=== PATIENT | male | born 2000 | race African-American/Black ===

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

== ENCOUNTER 2019-01-12 18:30 | Emergency (ER) | payer OTHER ==
[~2019-01-12] VITALS: Ht 175.3 cm; Wt 81.6 kg
[~2019-01-12 18:30] MED LIST changes: +AMOXICILLIN500 MG ORAL; +TYLENOL EXTRA500 MG ORAL
[2019-01-12 18:49] VITALS: BP 126/82
--- NOTE | 2019-01-12 18:54 | NUR ---
ED Nurse Note: Pt. AAOx4. ambulatory. came in to ER due to dry rashes noted all over his upper body. per pt, he started noticing traces of ring worm on his chest 3 months ago and now it's around the abd area and back. no itchiness reported
--- NOTE | 2019-01-12 19:19 | Emergency Room Report ---
History of Present Illness General Chief Complaint: Skin Rash/Abscess Source: Patient Present Illness HPI 18-year-old male presents to the emergency department complaining of multiple plaques on his torso 2 months. Patient reports some initial itching, and denies any pain. Pt. denies fevers, chills or swollen tender lymph nodes. Denies lesions/rashes elsewhere on the body. Denies new medications or body washes or creams. Denies swelling of the lips, tongue , throat or airway. Denies wheezing, or shortness of breath. Denies recent travel, recent illness or ill contacts. denies blisters, oral lesions, or sloughing of the skin. He reports at initial onset he did have several days of diarrhea. Allergies: Coded Allergies: FISH CONTAINING PRODUCTS (Verified Allergy, Unknown, 04/17/17) Patient History Past Medical History: see triage record Past Surgical History: none Pertinent Family History: none Reviewed Nursing Documentation: PMH: Agreed; PSxH: Agreed Nursing Documentation-PMH Hx Asthma: Yes Review of Systems All Other Systems: negative except mentioned in HPI Physical Exam Vital Signs Date Time Temp Pulse Resp B/P (MAP) Pulse Ox O2 Delivery O2 Flow Rate FiO2 01/12/19 18:49 98.1 70 19 97 Room Air 01/12/19 18:49 126/82 Sp02 EP Interpretation: reviewed, normal General Appearance: no apparent distress, alert, GCS 15, non-toxic Head: normocephalic, atraumatic Eyes: bilateral eye normal inspection, bilateral eye PERRL ENT: hearing grossly normal, normal pharynx, no angioedema, normal voice, other - no stridor, no swelling of the lips or tongue. Neck: full range of motion Respiratory: chest non-tender, lungs clear, normal breath sounds, speaking full sentences Cardiovascular #1: regular rate, rhythm, no edema Gastrointestinal: non tender, soft Musculoskeletal: back normal, gait/station normal, normal range of motion, non- tender Neurologic: alert, oriented x3, responsive, motor strength/tone normal, sensory intact, speech normal, grossly normal Psychiatric: judgement/insight normal Skin: normal color, warm/dry, well hydrated, rash - mildly erythematous plaques with silver sheen scattered diffusely on the torso. No blisters or vessicles, no areas of confluence, scant amount, all plaques less than1.5 cm in diameter. no central clearing, non-blanching. Medical Decision Making PA Attestation Dr. Duron is my supervising Physician whom patient management has been discussed with. Diagnostic Impression: Primary Impression: Rash and other nonspecific skin eruption ER Course 18-year-old male presents to the emergency department complaining of multiple plaques on his torso 2 months. Patient reports some initial itching, and denies any pain. Pt. denies fevers, chills or swollen tender lymph nodes. Denies lesions/rashes elsewhere on the body. Denies new medications or body washes or creams. Denies swelling of the lips, tongue , throat or airway. Denies wheezing, or shortness of breath. Denies recent travel, recent illness or ill contacts. denies blisters, oral lesions, or sloughing of the skin. He reports at initial onset he did have several days of diarrhea. Ddx considered but are not limited to cellulitis, scabies, shingles, varicella, dermatitis, urticaria, eczema, tinea, viral exanthem, SJS Vital signs: are WNL, pt. is afebrile H&PE are most consistent with non specific rash/plaques, No evidence to suggest acute impending airway compromise or anaphylaxis. ORDERS: none required at this time, the diagnosis is clinical ED INTERVENTIONS: None required at this time. DISCHARGE: At this time pt. is stable for d/c to home. Will provide printed patient care instructions, and any necessary prescriptions. Care plan and follow up instructions have been discussed with the patient prior to discharge. Last Vital Signs Date Time Temp Pulse Resp B/P (MAP) Pulse Ox O2 Delivery O2 Flow Rate FiO2 01/12/19 18:49 98.1 70 19 126/82 97 Room Air Disposition: HOME, SELF-CARE Condition: Stable Scripts Nystatin/Triamcin (NYSTATIN-TRIAMCINOLONE CREAM) 15 Gm Cream..g. 1 APPL TP Q6HR, #15 GM Prov: Stephanie Matthews 01/12/19 Patient Instructions: Rash Additional Instructions: Take medications as directed. Follow up with a Primary Care Provider in 3-5 days, even if your symptoms have resolved. --Please review list of primary care clinics, if you do not already have a primary care provider Return sooner to ED if new symptoms occur, or current symptoms become worse. - Please note that this Emergency Department Report was dictated using [employer] secretary technology software, occasionally this can lead to erroneous entry secondary to interpretation by the dictation equipment. Stephanie Matthews January 12, 2019 19:19
[2019-01-12] MEDS ORDERED: NYSTATIN-TRIAMC15 G2 TP (19:21)
--- NOTE | 2019-01-12 19:28 | NUR ---
ED Nurse Note: pt cleared to be d/c per ERMD, pt discharge and aftercare instruction provided w/ prescription, pt education done via discussion and handout, pt advised to follow up with pcp or return to ed if changes in condition, pt verbalized understanding and agrees with plan, vss, ambulatory w/ steady gait, left w/ all belongings, accompanied by parent. ID band removed.
[2019-01-12 19:30] VITALS: BP 121/87
== END 2019-01-12 19:30 | disposition home or self-care (01) ==
LOC: EMR 19:17
DX: R21 Rash and other nonspecific skin eruption (principal); Z91.013 Allergy to seafood
CPT/HCPCS: 99282

== ENCOUNTER 2019-01-25 09:46 | Emergency (ER) | payer OTHER ==
[~2019-01-25] VITALS: Ht 175.3 cm; Wt 81.6 kg
[~2019-01-25 09:46] MED LIST changes: +NYSTATIN-TRIAMC15 G2 TP
--- NOTE | 2019-01-25 09:55 | NUR ---
ED Nurse Note:pt. came with SOB and asthma exacerbation
[2019-01-25] MEDS: Ipratropium 0.02% Inh Soln 2.5ml UD HHN SCH ×2 (10:16→10:39)
[2019-01-25] MEDS: Albuterol ud Inhalation HHN SCH ×2 (10:16→10:39)
[2019-01-25 11:12] VITALS: BP 119/78
[2019-01-25] MEDS ORDERED: PREDNISONE20 MG ORAL (11:26)
[2019-01-25] MEDS ORDERED: ALBUTEROL SULF8.5 GM INH (11:26)
[2019-01-25 11:30] VITALS: BP 119/78
--- NOTE | 2019-01-25 11:32 | NUR ---
ER DISCHARGE NOTE: Patient is cleared to be discharged per ERMD DR Ordonez, pt is aox4, on room air, with stable vital signs. pt was given dc and prescription instructions, pt was able to verbalize understanding, pt id band removed without complications. pt is able to ambulate with steady gait with his parent. pt took all belongings.
--- NOTE | 2019-01-25 14:36 | Emergency Room Report ---
History of Present Illness General Chief Complaint: Dyspnea/Respdistress Source: Patient Present Illness HPI 18-year-old male presents ED for evaluation. Complaining of shortness of breath and wheezing 1 day. History of asthma. States that cold weather and arrange triggered his symptoms. Denies cough. Denies fevers or chills. Denies sick contacts or recent travel. No other aggravating relieving factors. Denies any other associated symptoms Allergies: Coded Allergies: FISH CONTAINING PRODUCTS (Verified Allergy, Unknown, 04/17/17) Patient History Past Medical History: asthma Past Surgical History: none Pertinent Family History: none Social History: Denies: smoking, alcohol use, drug use Immunizations: UTD Reviewed Nursing Documentation: PMH: Agreed; PSxH: Agreed Nursing Documentation-PMH Past Medical History: No History, Except For Hx Asthma: Yes Review of Systems All Other Systems: negative except mentioned in HPI Physical Exam Vital Signs Date Time Temp Pulse Resp B/P (MAP) Pulse Ox O2 Delivery O2 Flow Rate FiO2 01/25/19 09:48 98.1 85 20 92 Room Air 01/25/19 10:16 21 01/25/19 11:12 119/78 Sp02 EP Interpretation: reviewed, normal General Appearance: no apparent distress, alert, GCS 15, non-toxic Head: normocephalic, atraumatic Eyes: bilateral eye normal inspection, bilateral eye PERRL ENT: hearing grossly normal, normal pharynx, no angioedema, normal voice Neck: full range of motion, supple/symm/no masses Respiratory: chest non-tender, decreased breath sounds, speaking full sentences , wheezing Cardiovascular #1: regular rate, rhythm, no edema Cardiovascular #2: 2+ carotid (R), 2+ carotid (L), 2+ radial (R), 2+ radial (L) , 2+ dorsalis pedis (R), 2+ dorsalis pedis (L) Gastrointestinal: normal bowel sounds, non tender, soft, non-distended, no guarding, no rebound Rectal: deferred Genitourinary: normal inspection, no CVA tenderness Musculoskeletal: back normal, gait/station normal, normal range of motion, non- tender Neurologic: alert, oriented x3, responsive, motor strength/tone normal, sensory intact, speech normal Psychiatric: judgement/insight normal, memory normal, mood/affect normal, no suicidal/homicidal ideation Reflexes: 3+ bicep (R), 3+ bicep (L), 3+ tricep (R), 3+ tricep (L), 3+ knee (R) , 3+ knee (L) Skin: normal color, no rash, warm/dry, well hydrated Lymphatic: no adenopathy Medical Decision Making Diagnostic Impression: Primary Impression: Asthma exacerbation Qualified Codes: J45.901 - Unspecified asthma with (acute) exacerbation ER Course Hospital Course 18-year-old male presents to ED complaining of wheezing Differential diagnoses include: URI, bronchitis, asthma/COPD, pneumonia Clinical course Patient placed on stretcher. After initial history, physical exam reveals an elderly male in no acute distress. Bilateral TM unremarkable. No pharyngeal erythema. No tonsillar exudates. No lymphadenopathy. Mild wheezing noted on exam, no signs of respiratory distress or retractions. Patient given Prednisone and albuterol treatment in ED with symptoms improved. Reassurance given Discussed findings with patient. Safe for discharge close outpatient follow- up. Does not have PMD. We'll provide referrals Diagnosis - asthma exacerbation Stable and discharged home with prescriptions for prednisone, albuterol. Instructed to followup with PMD. Return to ED if symptoms recur or worsen Last Vital Signs Date Time Temp Pulse Resp B/P (MAP) Pulse Ox O2 Delivery O2 Flow Rate FiO2 01/25/19 11:30 98.1 73 16 119/78 100 Room Air 21 Status: improved Disposition: HOME, SELF-CARE Condition: Stable Scripts Prednisone* (PREDNISONE*) 20 Mg Tablet 40 MG ORAL DAILY, #10 TAB Prov: Haroldo Ordonez MD 01/25/19 Albuterol Sulfate* (ALBUTEROL SULFATE MDI*) 8.5 Gm Hfa.aer.ad 2 PUFF INH Q6H, #1 EA 0 Refills Prov: Haroldo Ordonez MD 01/25/19 Referrals: [facility],REFERRING (PCP) Charles Sandoval [facility] Patient Instructions: Asthma, Adult, [id number] Haroldo Ordonez MD January 25, 2019 14:36
== END 2019-01-25 11:40 | disposition home or self-care (01) ==
LOC: EMR 11:37
DX: J45.901 Unspecified asthma with (acute) exacerbation (principal); Z91.013 Allergy to seafood
CPT/HCPCS: 94640; 99284; J7512

== ENCOUNTER 2019-07-30 02:53 | Emergency (ER) | payer OTHER ==
[~2019-07-30] VITALS: Ht 175.3 cm; Wt 81.6 kg
--- NOTE | 2019-07-30 03:02 | NUR ---
ED Nurse Note: pt presents to ED with SOB and dyspnea, he has been out of his asthma medication (albuterol) for about 1 week but has had on and off asthma attacks for the past 3 days. 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 pt states that sometimes he is triggered by rainy days and weather changes as well. pt has audible wheezes but is still able to speak full sentences
[2019-07-30 03:09] VITALS: BP 121/83
[2019-07-30] MEDS ORDERED: Ipratropium 0.02% Inh Soln 2.5ml UD HHN ONE (03:15)
--- NOTE | 2019-07-30 03:16 | Emergency Room Report ---
History of Present Illness General Chief Complaint: Asthma Source: Patient, Family Member Present Illness HPI Disclaimer: Please note that this report is being documented using [employer] technology. This can lead to erroneous entry secondary to incorrect interpretation by the dictating instrument. HPI: 19-year-old male with a history of asthma presents for evaluation of shortness of breath. Symptoms have been present and worsening over the past 3 days. Notes an intermittent cough and posttussive shortness of breath that is been getting worse. Describes a wheezing. Has a history of asthma but has run out of his Ventolin inhaler. No recent steroid use. Denies fever or chills. Denies chest pain, vomiting, abdominal pain or other symptoms at this time. PMH: Asthma PSH: Denies Allergies: No medication allergies Social Hx: Denies alcohol or drug abuse Allergies: Coded Allergies: FISH CONTAINING PRODUCTS (Verified Allergy, Unknown, 04/17/17) Nursing Documentation-PMH Past Medical History: No History, Except For Hx Asthma: Yes Review of Systems All Other Systems: negative except mentioned in HPI Physical Exam Vital Signs Date Time Temp Pulse Resp B/P (MAP) Pulse Ox O2 Delivery O2 Flow Rate FiO2 07/30/19 02:57 97.7 64 19 121/83 (96) 93 Room Air General: Awake and alert, no acute distress HEENT: NC/AT. EOMI. Cardiovascular: RRR. S1 and S2 normal. No murmur appreciated Resp: Slightly increased work of breathing. Bilateral expiratory and expiratory wheezes. Mild distress. Abdomen: Abdomen is soft, nondistended. Nontender Skin: Intact. No abrasions, laceration or rash over the exposed skin MSK: Normal tone and bulk. Moving all extremities. No obvious deformity. Neuro: Awake and alert. Mentating appropriately. Medical Decision Making Diagnostic Impression: Primary Impression: Asthma exacerbation ER Course 19-year-old male presents for evaluation of shortness of breath. Appears to be an acute asthma exacerbation. Will treat with repeated breathing treatments and prednisone. Chest X-Ray Diagnostic Results Chest X-Ray Diagnostic Results : Chest X-Ray Ordered: Yes # of Views/Limited/Complete: 1 View Indication: Shortness of Breath EP Interpretation: Yes Interpretation: no consolidation, no effusion, no pneumothorax, no acute cardiopulmonary disease Impression: No acute disease Electronically Signed by: Electronically signed by Dr. Emeka M. Marisol Reevaluation Time: 04:05 Last Vital Signs Date Time Temp Pulse Resp B/P (MAP) Pulse Ox O2 Delivery O2 Flow Rate FiO2 07/30/19 03:09 97.7 85 19 121/83 93 Room Air Reevaluation Impression No evidence of infiltrate or other pathology seen on chest x-ray. The patient has significantly improve his receiving his breathing treatments. He given prednisone as well. He had significant improvement and I will be discharged home. We will continue steroids for an additional 4 days and have also refilled his albuterol inhaler and his Advair. He will follow-up with clinic. Discussed reasons to return to the emergency department. He understands and agrees with this treatment plan. Disposition: HOME, SELF-CARE Condition: Stable Scripts Fluticasone/Salmeterol (Advair 100-50 Diskus) 1 Each Disk.w.dev 1 PUFF INH TWICE A DAY, #1 EA Prov: Emeka Damon MD 07/30/19 Prednisone* (PREDNISONE*) 20 Mg Tablet 40 MG ORAL DAILY for 4 Days, #8 TAB Prov: Emeka Damon MD 07/30/19 Albuterol Sulfate* (ALBUTEROL SULFATE MDI*) 8.5 Gm Hfa.aer.ad 2 PUFF INH Q4H PRN for Shortness of Breath, #1 EA Prov: Emeka Damon MD 07/30/19 Emeka Damon MD Jul 30, 2019 03:16
[2019-07-30] MEDS: Albuterol ud Inhalation HHN SCH ×3 (03:21→03:42)
[2019-07-30] MEDS ORDERED: ALBUTEROL SULF8.5 GM INH (04:10)
[2019-07-30] MEDS ORDERED: ADVAIR 100-501 EACH INH (04:10)
[2019-07-30] MEDS ORDERED: PREDNISONE20 MG ORAL (04:10)
--- NOTE | 2019-07-30 04:28 | NUR ---
ED Nurse Note: Pt cleared by health care Provider for discharge. DC instructions/prescription was given and explained to pt and verbalized understanding of teachings. All medical deviecs such as ID band removed. Pt is AAO x4, ambulatory and left with all personal belongings.
--- NOTE | 2019-07-30 11:46 | Diagnostic Imaging Report ---
Indication: Dyspnea Comparison: None A single view chest radiograph was obtained. Findings: Cardiomediastinal appearance is within normal limits for age. The lungs are clear. Pulmonary vascularity is appropriate. The diaphragmatic contour is smooth and costophrenic angles are sharp. No pleural effusions are identified. The bones are unremarkable. Impression: No acute findings
== END 2019-07-30 04:28 | disposition home or self-care (01) ==
LOC: EMR 03:20
DX: J45.901 Unspecified asthma with (acute) exacerbation (principal); Z91.013 Allergy to seafood
CPT/HCPCS: 71045; 94640; J7512; Z7502; 99284

== ENCOUNTER 2020-07-17 09:58 | Emergency (ER) | payer SELFPAY ==
[~2020-07-17] VITALS: Ht 175.3 cm; Wt 90.7 kg
[2020-07-17 10:02] VITALS: BP 127/79
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
[2020-07-17] MEDS ORDERED: VENTOLIN HFA18 GM INH (10:14)
[2020-07-17] MEDS ORDERED: PREDNISONE20 MG ORAL (10:14)
[2020-07-17] MEDS ORDERED: ADVAIR 100-501 EACH INH (10:14)
[2020-07-17] MEDS ORDERED: Albuterol/Ipratropium 3ml neb HHN SCH (10:15)
[2020-07-17 12:10] VITALS: BP 121/86
== END 2020-07-17 12:10 | disposition home or self-care (01) ==
LOC: EMR 10:06
DX: J45.901 Unspecified asthma with (acute) exacerbation (principal); Z20.828 Contact with and (suspected) exposure to other viral communicable diseases
CPT/HCPCS: 94640; 99283; J7512; U0002; J7620